=== PATIENT | female | born 1960 | race African-American/Black ===

== ENCOUNTER 2020-08-15 12:32 | Outpatient (REF) | payer OTHER, SELFPAY ==
[2020-08-15 12:55] LABS: COVID-19 Test Negative (Negative)
== END 2020-08-15 12:33 | disposition home or self-care (01) ==
LOC: HO.EMPCOV 12:32
PROVIDERS: Visit Provider Internal Medicine
DX: Z20.828 Contact with and (suspected) exposure to other viral communicable diseases (principal)
CPT/HCPCS: 87635; C9803